=== PATIENT | male | born 1985 | race Caucasian/White ===

== ENCOUNTER 2017-09-07 03:21 | Emergency (ER) | payer SELFPAY ==
[~2017-09-07] VITALS: Ht 182.9 cm; Wt 77.1 kg
[2017-09-07 03:21] VITALS: BP 132/89
--- NOTE | 2017-09-07 06:33 | NUR ---
PT LEFT BEFORE RECEIVING ACI
== END 2017-09-07 06:35 | disposition home or self-care (01) ==
LOC: ER 03:21
DX: F19.10 Other psychoactive substance abuse, uncomplicated (principal); F10.10 Alcohol abuse, uncomplicated; F14.10 Cocaine abuse, uncomplicated
CPT/HCPCS: 99281; A4606; Z7610; Z7502